=== PATIENT | female | born 1990 | race African-American/Black ===

== ENCOUNTER 2017-02-27 16:26 | Emergency (ER) | payer SELFPAY ==
[~2017-02-27] VITALS: Ht 162.6 cm; Wt 100.0 kg
[~2017-02-27 16:26] MED LIST: IBUP800T23 PO
[2017-02-27 16:27] VITALS: BP 136/90; PULSE 90; RESP 18; TEMP 97.7; O2SAT 100
[2017-02-27] MEDS ORDERED: SODIUM CHLOR 0.9% 1000 ML INJ 1,000 ML IV ONE (17:49)
[2017-02-27] MEDS ORDERED: KETOROLAC TROMETHAMINE 30 MG/ML (IVP) VIAL IV PUSH ONE (18:00)
[2017-02-27 18:17] VITALS: BP 134/76; PULSE 70; RESP 18; O2SAT 99
--- NOTE | 2017-02-27 19:45 | PD ---
HPI Chief Complaint: Abdominal Pain Time Seen by Provider: 17:45 Travel History International Travel<30 days: No Contact w/Intl Traveler<30days: No Traveled to known affect area: No History of Present Illness HPI 26 yo F c/o abdominal and pelvic pain intermittently for months. She reports having vaginal bleeding for the last few months intermittently. She has fall of obstetrics who started her on Depo-Provera. She denies fever. She has no vomiting. Diet has been normal. Severity is moderate. No modifying factor identified by the patient. PFSH Past Medical History Medical History: Denies Significant Hx Immunizations Current: Yes ?: Not LMP: 02/21/17 Past Surgical History Surgical History: No Previous Surgery Social History Alcohol Use: No Tobacco Use: No Substance Use: No Allergies-Medications (Allergen,Severity, Reaction): Coded Allergies: No Known Allergies (Unverified , 03/13/15) Reported Meds & Prescriptions Reported Meds & Active Scripts Active Ibuprofen 800 Mg Tab 800 Mg PO TID Review of Systems Except as stated in HPI: all other systems reviewed are Neg General / Constitutional: No: Fever Physical Exam Narrative GENERAL: Well-nourished well-developed 26-year-old female no acute distress pleasant SKIN: Warm and dry. HEAD: Atraumatic. Normocephalic. EYES: Pupils equal and round. No scleral icterus. No injection or drainage. ENT: No nasal bleeding or discharge. Mucous membranes pink and moist. NECK: Trachea midline. No JVD. CARDIOVASCULAR: Regular rate and rhythm. RESPIRATORY: No accessory muscle use. Clear to auscultation. Breath sounds equal bilaterally. GASTROINTESTINAL: Soft. No focal tenderness. No distention. MUSCULOSKELETAL: Extremities without clubbing, cyanosis, or edema. No obvious deformities. NEUROLOGICAL: Awake and alert. No obvious cranial nerve deficits. Motor grossly within normal limits. Five out of 5 muscle strength in the arms and legs. Normal speech. PSYCHIATRIC: Appropriate mood and affect; insight and judgment normal. Data Data Last Documented VS Vital Signs Date Time Temp Pulse Resp B/P (MAP) Pulse Ox O2 Delivery O2 Flow Rate FiO2 02/27/17 18:17 70 18 134/76 (95) 99 Room Air 02/27/17 16:27 97.7 Vital signs reviewed Orders Orders Complete Blood Count With Diff (02/27/17 17:49) Comprehensive Metabolic Panel (02/27/17 17:49) Urinalysis - C+S If Indicated (02/27/17 17:49) Iv Access Insert/Monitor (02/27/17 17:49) Sodium Chlor 0.9% 1000 Ml Inj (Ns 1000 M (02/27/17 17:49) Ed Urine Pregnancytest Poc (02/27/17 17:49) Ketorolac Inj (Toradol Inj) (02/27/17 18:00) Ed Discharge Order (02/27/17 20:35) Labs Laboratory Tests Test 02/27/17 19:40 02/27/17 20:00 Urine Color LIGHT-YELLOW Urine Turbidity CLEAR Urine pH 6.0 Urine Specific [place] 1.010 Urine Protein NEG mg/dL Urine Glucose (UA) NEG mg/dL Urine Ketones NEG mg/dL Urine Occult Blood MOD Urine Nitrite NEG Urine Bilirubin NEG Urine Urobilinogen LESS THAN 2.0 MG/DL Urine Leukocyte Esterase NEG Urine RBC 2 /hpf Urine WBC 3 /hpf Urine Squamous Epithelial Cells 1 /hpf Urine Amorphous Sediment RARE Microscopic Urinalysis Comment CULT NOT INDICATED White Blood Count 6.0 TH/MM3 Red Blood Count 4.34 MIL/MM3 Hemoglobin 11.4 GM/DL Hematocrit 35.3 % Mean Corpuscular Volume 81.5 FL Mean Corpuscular Hemoglobin 26.3 PG Mean Corpuscular Hemoglobin Concent 32.2 % Red Cell Distribution Width 14.4 % Platelet Count 275 TH/MM3 Mean Platelet Volume 7.9 FL Neutrophils (%) (Auto) 39.2 % Lymphocytes (%) (Auto) 51.3 % Monocytes (%) (Auto) 6.6 % Eosinophils (%) (Auto) 2.5 % Basophils (%) (Auto) 0.4 % Neutrophils # (Auto) 2.4 TH/MM3 Lymphocytes # (Auto) 3.1 TH/MM3 Monocytes # (Auto) 0.4 TH/MM3 Eosinophils # (Auto) 0.1 TH/MM3 Basophils # (Auto) 0.0 TH/MM3 CBC Comment DIFF FINAL Differential Comment Blood Urea Nitrogen 9 MG/DL Creatinine 0.92 MG/DL Random Glucose 120 MG/DL Total Protein 7.9 GM/DL Albumin 3.8 GM/DL Calcium Level 8.6 MG/DL Alkaline Phosphatase 61 U/L Aspartate Amino Transf (AST/SGOT) 17 U/L Alanine Aminotransferase (ALT/SGPT) 35 U/L Total Bilirubin 0.2 MG/DL Sodium Level 138 MEQ/L Potassium Level 3.6 MEQ/L Chloride Level 105 MEQ/L Carbon Dioxide Level 27.0 MEQ/L Anion Gap 6 MEQ/L Estimat Glomerular Filtration Rate 88 ML/MIN MDM Medical Decision Making Medical Screen Exam Complete: Yes Emergency Medical Condition: Yes Medical Record Reviewed: Yes Differential Diagnosis Constipation, Gastritis, Acute Cholecystitis, Biliary Colic, Pancreatitis, MATHEW , Hepatitis, Bowel Obstruction, Cystitis, Mesenteric Ischemia, AAA, Appendicitis , Renal Stone/Hydronephrosis, GERD, perforated viscous Narrative Course CBC & BMP Diagram 02/27/17 20:00 Total Protein 7.9, Albumin 3.8, Calcium Level 8.6, Alkaline Phosphatase 61, Aspartate Amino Transf (AST/SGOT) 17, Alanine Aminotransferase (ALT/SGPT) 35, Total Bilirubin 0.2 Urinalysis shows moderate hematuria Overall workup is normal and the patient's complain of generalized abdominal pain with menometrorrhagia could be consistent with endometriosis. Acute surgical abdomen unlikely. Constipation is a concern. Patient may benefit from ongoing obstetrics gynecology follow-up Diagnosis Primary Impression: Menometrorrhagia Additional Impression: Abdominal pain Qualified Codes: R10.9 - Unspecified abdominal pain Referrals: [facility] [employer] call for appointment Med/Other Pt SpecificInfo: No Change to Meds Disposition: 01 DISCHARGE HOME Condition: Stable Bob Tamez MD Feb 27, 2017 19:45
[2017-02-27 20:14] LABS: BLOOD, URINE MOD (NEG); COMMENT (UR) CULT NOT INDICATED; CULTURE IF INDICATED CULT NOT INDICATED; GLUCOSE,URINE NEG (NEG); KETONE, URINE NEG (NEG); NITRITE,URINE NEG (NEG); SQUAMOUS EPITHELIAL CELL URINE 1 /hpf (0-5); URINE COLOR LIGHT-YELLOW (YELLW/STRAW)
[2017-02-27 20:20] LABS: AUTOMATED NEUTROPHIL # 2.4 TH/MM3 (1.8-7.7); BASOPHIL % 0.4 % (0.0-2.0); EOSINOPHIL # 0.1 TH/MM3 (0-0.4); EOSINOPHIL % 2.5 % (0.0-4.0); HEMATOCRIT 35.3 % (35.0-46.0); HEMO FLAGS DIFF FINAL; LYMPH % 51.3 % (9.0-44.0); LYMPHOCYTE # 3.1 TH/MM3 (1.0-4.8); MEAN CELL VOLUME 81.5 FL (80.0-100.0); MEAN CORPUSCULAR HEMOGLOBIN 26.3 PG (27.0-34.0); MEAN CORPUSCULAR HGB CONC 32.2 % (32.0-36.0); MONO % 6.6 % (0.0-8.0); NEUT % 39.2 % (16.0-70.0); PLATELET COUNT 275 TH/MM3 (150-450); RED BLOOD COUNT 4.34 MIL/MM3 (4.00-5.30); RED CELL DISTRIBUTION WIDTH 14.4 % (11.6-17.2)
[2017-02-27 20:28] LABS: ANION GAP 6 MEQ/L (5-15); BLOOD UREA NITROGEN 9 MG/DL (7-18); CHLORIDE 105 MEQ/L (98-107); GLOMERULAR FILTRATION RATE 88 ML/MIN (>89); POTASSIUM 3.6 MEQ/L (3.5-5.1); SODIUM (NA) 138 MEQ/L (136-145)
[2017-02-27 20:30] LABS: ALT (GPT) 35 U/L (10-53)
[2017-02-27 20:32] LABS: ALKALINE PHOSPHATASE 61 U/L (45-117); AST (GOT) 17 U/L (15-37); TOTAL BILIRUBIN ADULT 0.2 MG/DL (0.2-1.0)
[2017-02-27 20:55] VITALS: BP 132/82
== END 2017-02-27 21:00 | disposition home or self-care (01) ==
LOC: NEPD 16:26
DX: N92.1 Excessive and frequent menstruation with irregular cycle (principal)
CPT/HCPCS: 80053; 81001; 84703; 85025; 96361; 96374; 99284; J1885; J7030